=== PATIENT | male | born 1990 ===

== ENCOUNTER 2017-06-01 13:49 | Inpatient (IN) | payer SELFPAY ==
[2017-06-01 14:37] LABS: BASO # 0.1 K/uL (0.0-0.2); BASO % 2.2 % (0.0-2.0); EOS # 0.1 K/uL (0.0-0.7); HEMOGLOBIN 15.6 g/dL (12.0-18.0); LYMPH # 1.1 K/uL (1.0-4.3); LYMPH % 19.7 % (20.0-40.0); MEAN CELL VOLUME 91.6 fL (80.0-94.0); MEAN CORPUSCULAR HEMOGLOBIN 31.1 pg (27.0-31.0); MEAN CORPUSCULAR HGB CONC 33.9 g/dL (33.0-37.0); MEAN PLATELET VOLUME 10.5 fL (7.2-11.7); MONO # 0.5 K/uL (0.0-0.8); MONO % 8.5 % (0.0-10.0); NEUT % 68.6 % (50.0-75.0); NRBC % 0.1 % (0.0-2.0); RBC 5.02 Mil/uL (4.40-5.90); RED CELL DISTRIBUTION WIDTH 13.8 % (11.5-14.5); WHITE BLOOD COUNT 5.8 K/uL (4.8-10.8)
[2017-06-01 14:47] LABS: URINE AMORPHOUS SEDIMENT RARE /ul (<OCC); URINE BILIRUBIN NEGATIVE (NEGATIVE); URINE BLOOD 1+ (NEGATIVE); URINE CLARITY Hazy (Clear); URINE COLOR Yellow (YELLOW); URINE GLUCOSE (UA) NORMAL (Normal); URINE LEUKOCYTE ESTERASE NEG Leu/uL (Negative); URINE PROTEIN NEGATIVE (NEGATIVE)
[2017-06-01 14:49] LABS: ALB/GLOB RATIO 1.4 (1.0-2.1); ALBUMIN 4.5 g/dL (3.5-5.0); ALT/SGPT 21 U/L (21-72); AST/SGOT 28 U/L (17-59); BLOOD UREA NITROGEN 18 mg/dL (9-20); CALCIUM 9.1 mg/dl (8.6-10.4); GFR AFRICAN-AMERICAN > 60; GFR NON-AFRICAN AMERICAN > 60
[2017-06-01 15:04] LABS: BARBITURATES, UR NEGATIVE (NEGATIVE); BENZODIAZEPINES, UR NEGATIVE (NEGATIVE); OPIATES, UR NEGATIVE (NEGATIVE); PHENCYCLIDINE, UR NEGATIVE (NEGATIVE)
--- NOTE | 2017-06-01 19:27 | PCM.BM ---
<Keila Marks - Last Filed: 06/01/17 19:25> Treatment Plan Problems - Problems identified on initial assessmt Depression Date Initiated: 06/01/17 Time Initiated: 19:25 Assessment reference: NA Status: Active Treatment assets and liabiliti Patient Assests: adapts well, cooperative, motivated, negotiates basic needs Patient Liabilities: substance abuse - Milieu Protocol Maintain good personal hygiene: daily Encourage regular showers, daily Remind patient to perform daily oral care Conduct patient checks and document Observation sheet: Q15 minutes Maintain personal safety: every shift Educate patient to report safety concerns to staff, every shift Monitor environment for contraband/sharps Medication safety: Monitor for expected outcome, potential side effects: every shift, Assess barriers to learning: every shift, Assess readiness for medication education: every shift <Jeanie Morfin - Last Filed: 06/04/17 11:59> - Diagnosis (1) Bipolar 1 disorder Status: Acute Interventions: 06/04/17 11:59 * Assess/adjust medications daily and /or as needed * See patient on an individual basis 7x/week to assess level of manic behaviors and stability * Discuss risks, benefits, side effects and alternatives of medications *
--- NOTE | 2017-06-01 19:51 | C.PDOC ---
History Of Present Illness 27 year old male presents to the ED for evaluation of anxiety and hopelessness. Patient was seen in [facility] on 05/29 for a panic attack and was prescribed Xanax. Patient states he has been buying Xanax off the street for many years; reports taking 2mg daily. He states that he was homeless for 7 years and he recently began living in an apartment with his mother. Patient denies suicidal/homicidal ideation and has no other complaints at this time. Time Seen by Provider: 06/01/17 14:07 Chief Complaint (Nursing): Anxiety History Per: Patient History/Exam Limitations: no limitations Current Symptoms Are (Timing): Still Present Suicide/Self Injury Attempted (Context): None Modifying Factor(s): None Associated Symptoms: Anxiety. denies: Suicidal Thoughts, Suicidal Plan Involuntary Hold By: None Recent travel outside of the [place]: No Additional History Per: Patient Past Medical History Reviewed: Historical Data, Nursing Documentation, Vital Signs Vital Signs: Last Vital Signs Temp 98.1 F 06/01/17 17:28 Pulse 61 06/01/17 17:28 Resp 16 06/01/17 17:28 BP 108/63 06/01/17 17:28 Pulse Ox 99 06/01/17 19:56 - Medical History PMH: Anxiety Denies: Diabetes, Hepatitis, HIV, HTN, Seizures, Sexually Transmitted Disease Surgical History: No Surg Hx Family History: States: Unknown Family Hx - Social History Hx Alcohol Use: No Hx Substance Use: Yes (xanax, THC) - Immunization History Hx Tetanus Toxoid Vaccination: No Hx Influenza Vaccination: No Hx Pneumococcal Vaccination: No Review Of Systems Psych: Positive for: Anxiety. Negative for: Suicidal ideation Physical Exam - Physical Exam Appears: Non-toxic, No Acute Distress, Other (anxious, thin, small stature ) Skin: Normal Color, Warm, Dry Head: Atraumatic, Normacephalic Eye(s): bilateral: Normal Inspection Oral Mucosa: Moist Neck: Supple Chest: Symmetrical, No Deformity, No Tenderness Cardiovascular: Rhythm Regular, No Murmur Respiratory: Normal Breath Sounds, No Rales, No Rhonchi, No Wheezing Extremity: Normal ROM, Capillary Refill (less than 2 seconds ) Neurological/Psych: Oriented x3, Normal Speech, Normal Cognition ED Course And Treatment - Laboratory Results Result Diagrams: 06/01/17 14:33 06/01/17 14:33 O2 Sat by Pulse Oximetry: 99 (on RA) Pulse Ox Interpretation: Normal Progress Note: Bloodwork and UA ordered and reviewed. Disposition Doctor Will See Patient In The: Hospital Counseled Patient/Family Regarding: Studies Performed, Diagnosis - Disposition Disposition: HOSPITALIZED Disposition Time: 16:55 Condition: GOOD - Clinical Impression Clinical Impression: Mixed anxiety depressive disorder - Scribe Statement The provider has reviewed the documentation as recorded by the Scribe (Sonali Andrea) Provider Attestation: All medical record entries made by the Scribe were at my direction and personally dictated by me. I have reviewed the chart and agree that the record accurately reflects my personal performance of the history, physical exam, medical decision making, and the department course for this patient. I have also personally directed, reviewed, and agree with the discharge instructions and disposition.
--- NOTE | 2017-06-02 00:59 | C.PDOC ---
Time Seen by Provider: 06/01/17 14:07 Chief Complaint (Nursing): Anxiety Past Medical History Vital Signs: Last Vital Signs Temp 97.5 F L 06/02/17 06:32 Pulse 58 L 06/02/17 06:32 Resp 20 06/02/17 06:32 BP 97/58 L 06/02/17 06:32 Pulse Ox 100 06/03/17 06:09 - Medical History PMH: Anxiety Denies: Diabetes, Hepatitis, HIV, HTN, Seizures, Sexually Transmitted Disease Family History: States: No Known Family Hx - Social History Hx Alcohol Use: Yes Hx Substance Use: Yes (daily marijuana) - Immunization History Hx Tetanus Toxoid Vaccination: No Hx Influenza Vaccination: No Hx Pneumococcal Vaccination: No Physical Exam - Physical Exam Extremity: Swelling (mild L ankle pain/swelling) ED Course And Treatment - Laboratory Results Result Diagrams: 06/01/17 14:33 06/01/17 14:33 Lab Interpretation: Abnormal (tox + cannabanoids, but no benzo's (as pt claims is prescribed and he is taking, as soon as this AM (Ativan 1 mg PO)) O2 Sat by Pulse Oximetry: 100 Reevaluation Time: 16:48 Reassessment Condition: Improved (remains calm cooperative) Medical Decision Making Medical Decision Making: ? anxiety vs PTSD but pt will not discuss details Benzo withdrawal and 4 evals [place] [facility] this [place] and admitted but left AMA No benzo's in urine- is pt taking Ativan this morning as prescribed? ? malingering, is pt really homeless or living with his mother now? Disposition Doctor Will See Patient In The: Hospital Counseled Patient/Family Regarding: Studies Performed, Diagnosis - Disposition Disposition: HOSPITALIZED Disposition Time: 16:50 Condition: GOOD - Clinical Impression Clinical Impression: Mixed anxiety depressive disorder
--- NOTE | 2017-06-02 18:10 | PCM.PSYCH ---
Initial Psychiatric Evaluation - Initial Psychiatric Evaluation Type of Admission: Voluntary Legal Status: Capacity Chief Complaint (in patient's own words): I need treatment for my anxiety and withdrawing from benzos. History of Present Illness and Precipitating Events: Patient is a 27 years old, single, employed, male with no formal diagnosis in the past was admitted for the treatment of anxiety and cannabis use disorder. Patient reported he becomes depressed at times because of his symptoms, decreased sleep, increased energy, feels rested, decreased appetite and lost about 20 pounds in 1 week. Patient had suicidal ideations yesterday before admission without plan. No previous suicidal attempts or any homicidal ideations. Patient denied any psychotic symptoms. Also reported that he has less sleep, increased energy, talkative, shopping spree, involvement in that this behavior. Patient reported that he was sleeping manic symptoms as anxiety symptoms and started buying Xanax from [address] about one month ago. According to patient he was taking 1 mg of Xanax daily for last 3-4 weeks. About one week ago he went to [facility] for treatment and was discharged with a prescription of Ativan. Cannabis use: Started using cannabis at 15 years of age, increased gradually. Currently he was using 4-5 blunts daily. His last use was yesterday. Denied use of any other drugs including cocaine, heroin and alcohol. Patient smokes one pack of cigarettes daily and is requesting for nicotine patch. Patient was born in [place], has ninth grade of education. He is working and lives with his mother. Never and has no children. His height is 5 feet and weight is 88 pounds. Current Medications: Active Medications Generic Name Dose Route Start Last Admin Trade Name Freq PRN Reason Stop Dose Admin Divalproex Sodium 250 mg 06/02/17 18:[address] PO BID WILMAN Hydroxyzine HCl 50 mg 06/01/17 18:50 06/01/17 21:13 Atarax PO 50 mg Q6 PRN Administration Anxiety Ibuprofen 600 mg 06/01/17 18:50 Motrin Tab PO Q6 PRN Pain, moderate (4-7) Lorazepam 1 mg 06/01/17 18:50 Ativan PO Q6 PRN severe anxiety Nicotine 1 patch 06/02/17 10:00 06/02/17 09:32 Nicoderm Cq TD 1 patch DAILY WILMAN Administration Trazodone HCl 50 mg 06/01/17 18:50 Desyrel PO HS PRN Insomnia Past Psychiatric History - Past Psychiatric History Previous Treatment History: None History of Abuse: None reported History of ETOH/Drug Use: See HPI History of Family Illness: None reported Pertinent Medical Hx (Current Medical&Sleep Prob, Allergies): Allergies Allergy/AdvReac Type Severity Reaction Status Date / Time No Known Allergies Allergy Verified 06/01/17 14:02 Lorazepam [Ativan] 1 mg PO DAILY 06/01/17 Review of Systems - Psychiatric Psychiatric: Abnormal Sleep Pattern, Anxiety, Difficulty Concentrating, Mood Swings Mental Status Examination - Personal Presentation Personal Presentation: Looks younger than stated age - Affect Affect: Other (Appropriate) - Motor Activity Motor Activity: Calm - Reliability in Providing Information Reliability in Providing Information: Fair - Speech Speech: Relevant - Mood Mood: Anxious - Formal Thought Process Formal Thought Process: No Impairment - Hallucinations/Delusions Hallucinations: Other (None reported) Delusions: Other - Obsessions/Compulsions Obsessions: None Compulsions: None - Cognitive Functions Orientation: Person, Place, Situation, Time Sensorium: Alert Attention/Concentration: Attentive Abstract Thinking: Rogers Estimate of Intelligence: Average Judgement: Intact, as evidence by: Insight regarding need for hospitalization Memory: Recent intact, as evidence by: Ability to recall events of the day, Remote intact, as evidenced by: Ability to recall historical events - Risk Risk: Withdrawal, Diminished functioning - Strength & Assets Inventory Strength & Assets Inventory: Family support, Employment status, Cooperative - Limitations Limitations: Other DSM 5 DX - DSM 5 DSM 5 Diagnosis: Bipolar I disorder most recent episode manic without psychotic features Cannabis use disorder severe - Recommended/Plan of Treatment Treatment Recommendations and Plan of Treatment: Patient education Supportive therapy CBT for relapse prevention SD for abstinence We'll start Depakote 250 mg twice a day Other when necessary medications Aftercare discussed with the patient. Patient doesn't want any aftercare. Projected ELOS: 8-10 days - Smoking Cessation Smoking Cessation Initiated: Yes
[2017-06-02] MEDS: Divalproex 250 mg DR Tab PO SCH (19:00)
[2017-06-03 06:09] VITALS: O2SAT 100
[2017-06-03] MEDS: Divalproex 250 mg DR Tab PO SCH ×2 (09:12→17:19)
--- NOTE | 2017-06-03 14:19 | PCM.PYCHPN ---
Psychiatric Progress Note - Psychiatric Progress Note Patient seen today, length of contact: 15 minute Patient Chief Complaint: I'm feeling better with the treatment. Problems Identified/Issues Discussed: Patient seen, chart reviewed, case discussed with the staff. Issues related to illness and treatment were discussed with the patient and staff. Reported compliant with treatment with no adverse affects. Tolerating treatment very well. Patient reported feeling better. Calm and cooperative with good eye contact. Mood reported as good. Affect appropriate. Aftercare discussed with the patient. At the time of evaluation, patient was awake alert oriented 3, no delusions, no auditory visual hallucinations, no suicidal ideations or homicidal ideations. Medical Problems: None reported Diagnostic Results: Reviewed DSM 5 Symptoms Update: Some improvement with treatment Medication Change: No Medical Record Reviewed: Yes Mental Status Examination - Cognitive Function Orientation: Person, Place, Situation, Time Memory: Intact Attention: WNL Concentration: WNL Association: WN Fund of Knowledge: [facility] Decription of patient's judgement and insights: Fair - Mood Mood: Anxious (Less than before) - Affect Affect: Other (Appropriate) - Speech Speech: Appropriate - Formal Thought Process Formal Thought Process: No Impairment Psychotic Thoughts and Behaviors: None - Suicidal Ideation Suicidal Ideation: No - Homicidal Ideation Homicidal Ideation: No Goal/Treatment Plan - Goal/Treatment Plan Need for Continued Stay: Remain at risks for inpatient hospitalization, Discharge may exacerbated symptoms, Severe functional impairment Progress Toward Problem(s) and Goals/Treatment Plan: Patient education Supportive therapy CBT for relapse prevention ND for abstinence Continue treatment as before. Aftercare discussed with the patient. Patient doesn't want any aftercare. Estimated Date of D/C: 06/08/17 - Smoking Cessation Smoking Cessation Initiated: Yes
[2017-06-04 06:28] VITALS: RESP 20; TEMP 97.8
--- NOTE | 2017-06-04 09:59 | PCM.PYCHDC ---
Mental Status Examination - Mental Status Examination Orientation: Person, Place, Situation, Time Memory: Intact Mood: Neutral Affect: Constricted Speech: Soft Attention: WNL Concentration: WNL Association: WNL Fund of Knowledge: WNL Formal Thought Process: No Impairment Description of patient's judgement and insight: good, fair Psychotic Thoughts and Behaviors: denies any AVH Suicidal Ideation: No Current Homicidal Ideation?: No Discharge Summary - Discharge Note Reason for Hospitalization: Patient is a 27 years old, single, employed, male with no formal diagnosis in the past was admitted for the treatment of anxiety and cannabis use disorder. Patient reported he becomes depressed at times because of his symptoms, decreased sleep, increased energy, feels rested, decreased appetite and lost about 20 pounds in 1 week. Patient had suicidal ideations yesterday before admission without plan. No previous suicidal attempts or any homicidal ideations. Patient denied any psychotic symptoms. Also reported that he has less sleep, increased energy, talkative, shopping spree, involvement in that this behavior. Patient reported that he was sleeping manic symptoms as anxiety symptoms and started buying Xanax from [facility] about one month ago. According to patient he was taking 1 mg of Xanax daily for last 3-4 weeks. About one week ago he went to [facility] for treatment and was discharged with a prescription of Ativan. Cannabis use: Started using cannabis at 15 years of age, increased gradually. Currently he was using 4-5 blunts daily. His last use was yesterday. Denied use of any other drugs including cocaine, heroin and alcohol. Patient smokes one pack of cigarettes daily and is requesting for nicotine patch. Patient was born in [place], has ninth grade of education. He is working and lives with his mother. Never and has no children. His height is 5 feet and weight is 88 pounds. Consultations:: List each consultation separately and include: 1. Reason for request. 2. Findings. 3. Follow-up Summary of Hospital Course include:: 1. Description of specific treatment plan utilized for patients during their course of treatmen. 2. Summarize the time- course for resolution of acute symptoms and/or regressed behaviors. 3. Describe issues identified and worked on during hospitalization. 4. Describe medication utilized. 5. Describe medical problems identified and treated. 6. Reassessment of suicide risk - Final Diagnosis (DSM 5) Condition upon Discharge: GOOD DSM 5: Bipolar I disorder most recent episode manic without psychotic features Cannabis use disorder severe Disposition: HOME/ ROUTINE Prescriptions/Medication Reconciliation: Divalproex [Depakote DR] 250 mg PO BID #60 tcp traZODone [Desyrel] 50 mg PO HS PRN #30 tab PRN Reason: Insomnia
[2017-06-04] MEDS: Divalproex 250 mg DR Tab PO SCH (10:02)
[2017-06-04 14:09] VITALS: BP 96/59; PULSE 79
== END 2017-06-04 11:45 | disposition home or self-care (01) | DRG 885 ==
LOC: C.ER 13:49 → C.5E 16:50
PROC: HZ2ZZZZ Detoxification Services for Substance Abuse Treatment (ICD-10-PCS; principal; 2017-06-01)
PROC: HZ52ZZZ Individual Psychotherapy for Substance Abuse Treatment, Cognitive-Behavioral (ICD-10-PCS; 2017-06-01)
PROC: HZ59ZZZ Individual Psychotherapy for Substance Abuse Treatment, Supportive (ICD-10-PCS; 2017-06-01)
PROC: HZ42ZZZ Group Counseling for Substance Abuse Treatment, Cognitive-Behavioral (ICD-10-PCS; 2017-06-01)
PROC: GZHZZZZ Group Psychotherapy (ICD-10-PCS; 2017-06-01)
PROC: GZ58ZZZ Individual Psychotherapy, Cognitive-Behavioral (ICD-10-PCS; 2017-06-01)
PROC: GZ56ZZZ Individual Psychotherapy, Supportive (ICD-10-PCS; 2017-06-01)
DX: F31.10 Bipolar disorder, current episode manic without psychotic features, unspecified (principal); R45.851 Suicidal ideations; F12.20 Cannabis dependence, uncomplicated; F17.210 Nicotine dependence, cigarettes, uncomplicated; F41.0 Panic disorder [episodic paroxysmal anxiety]; F41.8 Other specified anxiety disorders; Z76.5 Malingerer [conscious simulation]